=== PATIENT | female | born 1960 | race Caucasian/White ===

== ENCOUNTER 2017-03-29 09:18 | Day surgery (SDC) | payer OTHER ==
[2017-03-20 09:23] VITALS: BMI 29.0
--- NOTE | 2017-03-21 09:22 | HP ---
Admitting History and Physical - Primary Care Physician PCP: Terrell Lindsey - Admission Chief Complaint: Right breast LCIS History of Present Illness: 57 year old postmenapausal female with strong family H/O breast cancer with her sister who also had renal cancer and two paternal cousins with breast cancer. She was found to have a cluster of calcifications in central right breast at 12: 00 02/2017. She underwent a stereotactic core biopsy 02/2017 right breast 12:00 showing LCIS and sclerosing adenosis associated with calcifications. History Source: Patient Limitations to Obtaining History: No Limitations - Past Medical History Cardiovascular: Yes: Other (recent slight change in EKG currently seeing reweaver) Gastrointestinal: Yes: GERD ...: No Rheumatology: Yes: Fibromyalgia - Past Surgical History Additional Past Surgical History: Right breast wide excision 1995 benign and right breast cyst aspiration 2 yrs ago - Smoking History Smoking history: Never smoked Have you smoked in the past 12 months: No - Alcohol/Substance Use Hx Alcohol Use: Yes (SOCIALLY) Home Medications - Allergies Allergies/Adverse Reactions: Allergies Allergy/AdvReac Type Severity Reaction Status Date / Time Penicillins Allergy Severe Itching,HIV Verified 03/20/17 09:12 ES codeine AdvReac Severe Vomiting Verified 03/20/17 09:13 - Home Medications Home Medications: Ambulatory Orders Acetaminophen [Tylenol -] 500 mg PO Q4H PRN 03/20/17 Lansoprazole [Prevacid] 30 mg PO ASDIR PRN 03/20/17 Family Disease History - Family Disease History Family Disease History: CA: Mother (cervical ca), Sister (renal cell ca / recent diagnosis breast cancer at 61// another sister recent diagnosis of gastric cancer) Other Family History: 2 paternal cousins breast ca Physical Examination Constitutional: Yes: Well Nourished Breast(s): Yes: Other (on exam ptotic C cup breast obvious bruising from steretactic core bx right 12:00 hematoma palpated but no mass or adenopathy bilaterally) Problem List - Problems (1) Lobular carcinoma in situ (LCIS) of right breast Code(s): D05.01 - LOBULAR CARCINOMA IN SITU OF RIGHT BREAST Assessment/Plan Right breast wide excision with mammogram needle localization
[2017-03-29] MEDS ORDERED: MIDAZOLAM HCL 2 MG/2 ML SINGLE DOSE VIAL ONE ×2 (11:26→12:00)
[2017-03-29] MEDS ORDERED: LIDOCAINE HCL 1%, 10 MG/ML (20ML VIAL) ONE (11:36)
[2017-03-29] MEDS ORDERED: BUPIVACAINE HCL/PF 2.5 MG/ML - 30 ML VIAL IJ ONE (11:36)
[2017-03-29] MEDS ORDERED: ONDANSETRON 4 MG/2 ML VIAL ONE (11:58)
[2017-03-29] MEDS ORDERED: DEXAMETHASONE SOD PHOSPHATE 4 MG/1 ML VIAL ONE (11:58)
[2017-03-29] MEDS ORDERED: PROPOFOL 20 ML ONE ×2 (11:59→12:38)
[2017-03-29] MEDS ORDERED: LIDOCAINE HCL/PF 2% SDV 5ML VIAL ONE (11:59)
[2017-03-29] MEDS ORDERED: LIDOCAINE HCL 1%, 10 MG/ML (50 mL VIAL) IJ ONE (12:14)
[2017-03-29] MEDS ORDERED: LIDOCAINE HCL 1%, 10 MG/ML (50 mL VIAL) INF ONE (12:14)
[2017-03-29] MEDS ORDERED: ONDANSETRON 4 MG/2 ML VIAL IVPUSH PRN ×2 (12:21→13:08)
[2017-03-29] MEDS ORDERED: oxyCODONE HCL 5 MG TABLET PO PRN (12:21)
[2017-03-29] MEDS ORDERED: LACTATED RINGERS SOLUTION 1,000 ML IV SCH (12:30)
[2017-03-29] MEDS ORDERED: BUPIVACAINE HCL/PF 0.25% (2.5MG/ML) 10 ML VIAL IJ ONE (12:51)
[2017-03-29] MEDS ORDERED: KETOROLAC TROMETHAMINE 30 MG/1 ML VIAL IVPUSH PRN (13:08)
[2017-03-29] MEDS ORDERED: DEXTROSE 5%-0.45% SALINE 1,000 ML IV SCH (13:15)
[2017-03-29] MEDS ORDERED: oxyCODONE HCL 5 MG TABLET ONE ×2 (14:28→15:14)
[2017-03-29 15:51] VITALS: BP 127/71; PULSE 61; TEMP 98.1
--- NOTE | 2017-03-30 09:05 | OP ---
DATE OF OPERATION: 03/29/2017 PREOPERATIVE DIAGNOSIS: Right breast 12 o'clock lobular carcinoma in situ with calcifications. POSTOPERATIVE DIAGNOSIS: Right breast 12 o'clock lobular carcinoma in situ with calcifications, await permanent section. PROCEDURE: Right breast wide excision with mammographic needle localization. ANESTHESIA: Local with IV sedation. SURGEON: Anahi Lindsey MD FURNITURE ASSEMBLER: NIK Pickering COMPLICATIONS: None. Briefly, the patient is a 57-year-old postmenopausal white female of [place] and [place] descent. She has a strong family history with her sister with breast cancer at age 61 as well as renal cell cancer. Her mother from cervical cancer at age 42. She has 2 paternal cousins who had breast cancer. The patient had a screening mammography showing some calcifications in the right breast in February 2017 and stereotactic biopsy showed LCIS with some sclerosing adenosis associated with the calcifications. The patient was advised in undergoing a right breast wide excision with mammographic needle localization. She was brought in for the procedure on March 29, 2017. She first underwent the mammographic needle localization in Radiology and then was brought to the holding area. In the holding area, site verification was made and informed consent was obtained. She was brought into the operating room and laid on the OR table in the supine position. Venodynes were placed on the lower extremities. She underwent IV sedation and the right breast was sterilely prepped and draped in the usual fashion with the wire prepped in the field. Lidocaine 1% was given in a curvilinear fashion on the periareolar upper aspect of the right nipple-areolar complex. Incision was made around the 12 o'clock periareolar border of the right breast nipple-areolar complex and dissection was undertaken around the needle and the wire. The breast tissue was extremely dense and we were able to dissect the tissue from around the wire. The specimen was completely removed with the wire intact within the middle of the specimen. The specimen was oriented with a long lateral, short superior suture. The patient did have a significant prior hematoma after her biopsy and there was a fair amount of fibrosis from the hematoma as well. Specimen x-ray showed removal of the clip in question. Hemostasis was achieved and the wound was copiously irrigated. The breast tissue was then reapproximated using 2-0 plain suture. The skin was closed using interrupted 3-0 deep dermal Vicryl suture and a running 4-0 subcuticular Biosyn suture. Mastisol, Steri-Strips were applied over the wound and a compressive dressing placed over this. The patient tolerated the procedure well without difficulty, was awake and alert at the end of the procedure. The patient was recovered and will be discharged home the same day once discharge criteria are met. She is to follow up in the office in 1 week for formal wound pathology check. All sponge and needle counts were correct at the end of the case and estimated blood loss was minimal. ANAHI LINDSEY M.D. [id number]
--- NOTE | 2017-04-03 15:56 | PATH ---
Surgical Pathology Report Patient Name: LADAN GUADARRAMA [facility]. Rec. #: [id number] /Age/Gender: 1960 (Age: 57) / F Account: [id number] Location[facility] Taken: 03/29/2017 Received: 03/29/2017 Reported: 04/03/2017 Physicians: Terrell Lindsey M.D. Specimen(s) Received RIGHT BREAST WIDE EXCISION Clinical History LCIS on previous core biopsy Final Diagnosis BREAST, RIGHT, WIDE EXCISION: LOBULAR CARCINOMA IN SITU (LCIS), CLASSICAL TYPE. FOCAL ATYPICAL DUCTAL HYPERPLASIA (ADH). REMAINING BREAST TISSUE SHOWS COLUMNAR CELL CHANGE, SCLEROSING ADENOSIS, SCLEROSED INTRADUCTAL PAPILLOMA, CYSTIC APOCRINE METAPLASIA AND ASSOCIATED CALCIFICATIONS. PRIOR BIOPSY SITE CHANGES ARE PRESENT. Electronically Signed Paloma Arellano M.D. Gross Description Received in formalin, labeled "right breast wide excision," is a 5.0 x 4.6 x 2.3 cm. harrington-yellow, irregular, portion of fibroadipose tissue with a needle localization wire present. There is a short suture marking the superior aspect and a long suture marking the lateral aspect, per the surgeon. There is no skin present. The specimen is inked as follows: superior and lateral blue; inferior green; medial yellow; anterior red; deep black. The specimen is serially sectioned from superior to inferior. Sectioning reveals diffuse dense, white fibrous tissue with foci of hemorrhage and multifocal calcifications. The specimen is entirely and sequentially submitted from superior to inferior in 20 cassettes with superior margin in cassette 1-2 and the inferior margin in cassettes 19-20 (one bisected section each in cassettes 3/4, 5/6, 7/8, 9/10, 11/12, 13/14, 15/16, 17/18). Time to formalin fixation: 12 minutes Total formalin fixation time: Approximately 29 hours. 03/30/201703/30/2017
== END 2017-03-29 15:45 | disposition home or self-care (01) ==
LOC: FASU 09:18
PROVIDERS: ATTEND Surgery Surgical Oncology
PROC: 0HBT0ZZ Excision of Right Breast, Open Approach (ICD-10-PCS; principal; 2017-03-29 12:07)
DX: D05.01 Lobular carcinoma in situ of right breast (principal)
CPT/HCPCS: 19281; 88307-TC; 94760